=== PATIENT | male | born 1980 ===

== ENCOUNTER 2018-12-28 13:03 | Emergency (ER) | payer SELFPAY ==
[~2018-12-28] VITALS: Ht 175.3 cm; Wt 72.7 kg
[2018-12-28] MEDS ORDERED: LIDOCAINE 1%/EPI 1:200,000/PF 10 ML VIAL INJ ONE (13:45)
[2018-12-28] MEDS ORDERED: PERTUSS(ACELL),DIPH,TET VAC/PF 0.5 ML VIAL IM ONE (13:45)
[2018-12-28] MEDS ORDERED: SODIUM CHLORIDE 0.9% 250 ML IRRIG SOLUTION BOTTLE IRRIG ONE (13:45)
[2018-12-28 16:03] VITALS: BP 122/69
== END 2018-12-28 16:11 | disposition home or self-care (01) ==
LOC: EMS 13:07
DX: Z02.89 Encounter for other administrative examinations (principal); S21.112A Laceration without foreign body of left front wall of thorax without penetration into thoracic cavity, initial encounter; X78.1XXA Intentional self-harm by knife, initial encounter; Y93.89 Activity, other specified; Y92.89 Other specified places as the place of occurrence of the external cause; Y99.8 Other external cause status
CPT/HCPCS: 12002; 71046; 90471; 90715; 96372; 99283; J0690; J3490